=== PATIENT | male | born 1970 | race Caucasian/White ===

== ENCOUNTER 2019-06-26 15:20 | Inpatient (IN) | payer OTHER ==
[2019-06-26 18:26] VITALS: BMI 21.4
--- NOTE | 2019-06-26 20:05 | HP ---
CIWA Score Nausea/Vomitin-No Nausea/No Vomiting Muscle Tremors: 4-Moderate,w/Arms Extend Anxiety: 1-Mildly Anxious Agitation: 0-Normal Activity Paroxysmal Sweats: 3 (Increased facial moisture) Orientation: 2-Disoriented Date<2 days Tacttile Disturbances: 0-None Auditory Disturbances: 0-None Visual Disturbances: 0-None Headache: 0-None Present CIWA-Ar Total Score: 10 - Admission Criteria [facility]AS[facility] Guidelines: Admission for Medically Managed Detox: Requires at least one of the followin. CIWA greater than 12 2. Seizures within the past 24 hours 3. Delirium tremens within the past 24 hours 4. Hallucinations within the past 24 hours 5. Acute intervention needed for co occurring medical disorder 6. Acute intervention needed for co occurring psychiatric disorder 7. Severe withdrawal that cannot be handled at a lower level of care (continued vomiting, continued diarrhea, abnormal vital signs) requiring intravenous medication and/or fluids 8. Patient presents the following: Acute intervention needed for co-occurring med or psych disorder (Patient is HIV +) Admission Criteria Met: Admission criteria met Admission ROS [facility] - [facility] Chief Complaint: I'm in withdrawal. Allergies/Adverse Reactions: Allergies Allergy/AdvReac Type Severity Reaction Status Date / Time Fish Containing Products Allergy Severe Rash Verified 06/26/19 18:16 History of Present Illness: 48 yo presents with alcohol withdrawal w/ co-occurring cocaine and marijuana use disorder requesting detox. Transgender. Prefers to be called "Tamra". States is comfortable being place in a room w/ another male. Alcohol use began at age 14. Currently drinking 12 - 16 oz beers daily x 2 years. Cocaine/Crack use began at age 43. Currently us is $50 - 100/day x 5 years. Heroin use began at age 48. Current use1-2 bags 2-3 x/wk. Last used 06/22/19. Marijuana use began at age 13. Current use is 2 blunts/day. Nicotine use began at age 13. Current use = 1/2 PPD. Longest sobriety 1 1/2 years - 2 years ago. Denies seizures, blackouts, overdoses. Domiciled. Unemployed. PMHx: Hx PPD+ (Rx'd w/ INH/B6 in 2001); Chronic Hepatitis B; Neuropathy of both legs; MHHx: Denies depression. Denies thoughts of harming self or others. Search Terms: Jai Esteban, 1970 Search Date: 06/26/2019 08:16:38 PM The Drug Utilization Report below displays all of the controlled substance prescriptions, if any, that your patient has filled in the last twelve months. The information displayed on this report is compiled from pharmacy submissions to the Department, and accurately reflects the information as submitted by the pharmacies. This report was requested by: Rina Taylor | Reference #: [id number] There are no results for the search terms that you entered. Search Terms: Jai Esteban, 1970 Search Date: 06/26/2019 08:17:16 PM States Searched: [place], [place], [place], [place], [place], [place], [place], [place] The Drug Utilization Report below displays the controlled substance prescriptions, if any, that were dispensed in the indicated state(s). The information displayed on this report is compiled from requests submitted to other states' PMPs, and accurately reflects the information as returned by them. Blank fioer indicate data not provided by other state. This report was requested by: Rina Taylor | Reference #: [id number] Exam Limitations: No Limitations - Ebola screening Have you traveled outside of the country in the last 21 days: No Have you had contact with anyone from an Ebola affected area: No Have you been sick,other than usual withdrawal symptoms: No (Denies recent measles exposure) Do you have a fever: No - Review of Systems Constitutional: Diaphoresis, Unintentional Wgt. Loss EENT: reports: Blurred Vision Respiratory: reports: No Symptoms reported Cardiac: reports: No Symptoms Reported GI: reports: No Symptoms Reported : reports: No Symptoms Reported Musculoskeletal: reports: No Symptoms Reported Integumentary: reports: No Symptoms Reported Neuro: reports: Numbness (Allen from knee to feet x 5 years), Tremors Endocrine: reports: No Symptoms Reported Hematology: reports: Anemia (HIV +) Psychiatric: reports: Judgement Intact, Anxious, other (Unsure of date. Kows month and year) Patient History - PPD History Previous Implant?: Yes Documented Results: Positive w/o proof Implanted On Prior [facility] Admission?: No PPD to be Administered?: No - Smoking Cessation Smoking history: Current every day smoker Have you smoked in the past 12 months: Yes Aproximately how many cigarettes per day: 10 Hx Chewing Tobacco Use: No Initiated information on smoking cessation: Yes 'Breaking Loose' booklet given: 06/26/19 - Substance & Tx. History Hx Alcohol Use: Yes Hx Substance Use: Yes Substance Use Type: Alcohol, Cocaine, Marijuana Hx Substance Use Treatment: Yes (detox, long-term) - Substances abused Crack Substance route: Smoking Frequency: Daily Amount used: $50-300/DAY Age of first use: 44 Date of last use: 06/26/19 Alcohol Substance route: Oral Frequency: Daily Amount used: 12 pack beer 16 ounces, Age of first use: 14 Date of last use: 06/26/19 Heroin Substance route: Inhalation Frequency: 3-6 times per week Amount used: 1-2 bags Age of first use: 48 Date of last use: 06/22/19 Admission Physical Exam [facility] - Vital Signs Vital Signs: Vital Signs - 24 hr 06/26/19 18:21 Temperature 97.9 F Pulse Rate 86 Respiratory 18 Rate Blood Pressure 99/71 - Physical General Appearance: Yes: Mild Distress, Thin, Tremorous (Increased tremors hands w/ arms elevated), Sweating (Increased facial moisture), Anxious HEENTM: Yes: EOMI (Jerking movement of eyes on lateral gaze), Hearing grossly Normal, Normocephalic, Normal Voice, ANNA, Pharynx Normal Respiratory: Yes: Lungs Clear (O2 Sat = 97 %), Normal Breath Sounds, No Respiratory Distress Neck: Yes: No masses,lesions,Nodules, Supple Breast: Yes: Breast Exam Deferred Cardiology: Yes: Regular Rhythm, Regular Rate, S1, S2, Other (Bilateral varicose veins (L) > (R). Pedal pusles +; Cap refill < 3 sec.) Abdominal: Yes: Flat, Soft, Increased Bowel Sounds, Tenderness (RUQ tenderness upon deep palpation. No guarding. 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 NML intact (Jerking movement of eyes on lateral gaze), Alert, Motor Strength 5/5, Normal Response Integumentary: Yes: Normal Color, Warm Lymphatic: Yes: Within Normal Limits - Diagnostic (1) Alcohol dependence with uncomplicated withdrawal Current Visit: Yes Status: Acute (2) Nicotine dependence, uncomplicated Current Visit: Yes Status: Chronic Qualifiers: Nicotine product type: cigarettes Qualified Code(s): F17.210 - Nicotine dependence, cigarettes, uncomplicated (3) Cannabis dependence, uncomplicated Current Visit: Yes Status: Chronic (4) Cocaine dependence, uncomplicated Current Visit: Yes Status: Chronic (5) History of HIV infection Current Visit: Yes Status: Chronic Comment: w/ neuropathy BLE (6) History of positive PPD Current Visit: Yes Status: Chronic (7) History of hepatitis B Current Visit: Yes Status: Chronic (8) Varicose veins of both lower extremities Current Visit: Yes Status: Chronic Qualifiers: Varicose vein complication: asymptomatic Qualified Code(s): I83.93 - Asymptomatic varicose veins of bilateral lower extremities (9) Nystagmus Current Visit: Yes Status: Chronic (10) Mild opioid 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
[2019-06-26] MEDS ORDERED: chlordiazePOXIDE HCL 25 MG CAPSULE PO PRN (20:40)
[2019-06-26] MEDS ORDERED: IBUPROFEN 400 MG TABLET (FP) PO PRN (20:40)
[2019-06-26] MEDS ORDERED: ACETAMINOPHEN 325 MG TABLET (FP) PO PRN ×2 (20:40)
[2019-06-26] MEDS ORDERED: MAGNESIUM HYDROX 2400MG/30ML ORAL SUSPENSION 30 ML CUP PO PRN (20:40)
[2019-06-26] MEDS ORDERED: METHOCARBAMOL 500 MG TABLET PO PRN (20:40)
[2019-06-26] MEDS ORDERED: MAGNESIUM CITRATE 300 ML BOTTLE PO PRN (20:40)
[2019-06-26] MEDS ORDERED: BISMUTH SUBSALICYLATE 524 MG/30 ML UD PO PRN (20:40)
[2019-06-26] MEDS ORDERED: MAG HYDROX/AL HYDROX/SIMETH 30 ML UNIT-DOSE CUP PO PRN (20:40)
[2019-06-26] MEDS ORDERED: MELATONIN 5 MG TABLETS PO PRN (20:40)
[2019-06-26] MEDS ORDERED: NICOTINE POLACRILEX 2 MG GUM BUC PRN (20:40)
[2019-06-26] MEDS ORDERED: MENTHOL/PHENOL 1 EACH UD MM PRN (20:40)
[2019-06-26] MEDS: GABAPENTIN 300 MG CAPSULE (FP) PO SCH (22:21)
[2019-06-26] MEDS: chlordiazePOXIDE HCL 25 MG CAPSULE PO SCH (22:21)
[2019-06-26] MEDS: THIAMINE HCL 100 MG TABLET (FP) PO SCH (22:21)
[2019-06-26] MEDS: SPIRONOLACTONE 25 MG TABLET (FP) PO SCH (22:25)
[2019-06-27] MEDS: chlordiazePOXIDE HCL 25 MG CAPSULE PO SCH ×4 (05:16→22:13)
--- NOTE | 2019-06-27 08:28 | PN ---
[facility] CIWA - CIWA Score Nausea/Vomitin-Mild Nausea/No Vomiting Muscle Tremors: 4-Moderate,w/Arms Extend Anxiety: 3 Agitation: 2 Paroxysmal Sweats: 1-Minimal Palms Moist Orientation: 0-Oriented Tacttile Disturbances: 1-Very Mild Itch/Numbness Auditory Disturbances: 0-None Visual Disturbances: 0-None Headache: 1-Very Mild CIWA-Ar Total Score: 13 S Progress Note (SOAP) Subjective: patient prefers regular diet tremor anxiety restlessness trouble with concentration after lunch feeling better ambulating on hallway limited conversation with staff and peers Objective: 06/27/19 14:28 Vital Signs Temperature 97.8 F 06/27/19 13:33 Pulse Rate 70 06/27/19 13:33 Respiratory Rate 18 06/27/19 13:33 Blood Pressure 102/65 06/27/19 13:33 O2 Sat by Pulse Oximetry (%) Laboratory Last Values WBC 4.5 K/mm3 (4.0-10.0) 06/27/19 07:00 RBC 3.98 M/mm3 (4.00-5.60) L 06/27/19 07:00 Hgb 12.6 GM/dL (11.7-16.9) 06/27/19 07:00 Hct 37.8 % (35.4-49) 06/27/19 07:00 MCV 95.1 fl (80-96) 06/27/19 07:00 MCH 31.8 pg (25.7-33.7) 06/27/19 07:00 MCHC 33.4 g/dl (32.0-35.9) 06/27/19 07:00 RDW 12.8 % (11.9-15.9) 06/27/19 07:00 Plt Count 153 K/MM3 (134-434) 06/27/19 07:00 MPV 10.4 fl (7.5-11.1) 06/27/19 07:00 Sodium 137 mmol/L (136-145) 06/27/19 07:00 Potassium 3.9 mmol/L (3.5-5.1) 06/27/19 07:00 Chloride 105 mmol/L (98-107) 06/27/19 07:00 Carbon Dioxide 26 mmol/L (21-32) 06/27/19 07:00 Anion Gap 5 MMOL/L (8-16) L 06/27/19 07:00 BUN 24.3 mg/dL (7-18) H 06/27/19 07:00 Creatinine 0.8 mg/dL (0.55-1.3) 06/27/19 07:00 Est GFR (CKD-EPI)AfAm 120.72 06/27/19 07:00 Est GFR (CKD-EPI)NonAf 104.16 06/27/19 07:00 Random Glucose 67 mg/dL (74-106) L 06/27/19 07:00 Calcium 7.6 mg/dL (8.5-10.1) L 06/27/19 07:00 Total Bilirubin 1.0 mg/dL (0.2-1) 06/27/19 07:00 AST 93 U/L (15-37) H 06/27/19 07:00 ALT 64 U/L (13-61) H 06/27/19 07:00 Alkaline Phosphatase 123 U/L (45-117) H 06/27/19 07:00 Total Protein 6.7 g/dl (6.4-8.2) 06/27/19 07:00 Albumin 2.6 g/dl (3.4-5.0) L 06/27/19 07:00 RPR Titer Nonreactive (NONREACTIVE) 06/27/19 07:00 lab noted low Ca++ Assessment: 06/27/19 14:29 alcohol withdrawal sx low ca++ Plan: continue alcohol detox Ca++ supplement bid
[2019-06-27] MEDS: NICOTINE 14 MG/24 HOURS TOPICAL PATCH TD SCH (10:05)
[2019-06-27] MEDS: PRENATAL VITAMINS W/ FOLIC ACID TABLET (FP) PO SCH (10:05)
[2019-06-27] MEDS: GABAPENTIN 300 MG CAPSULE (FP) PO SCH ×2 (10:05→22:12)
[2019-06-27] MEDS: SPIRONOLACTONE 25 MG TABLET (FP) PO SCH ×2 (10:06→22:14)
[2019-06-27 10:56] LABS: HEMATOCRIT 37.8 % (35.4-49); HEMOGLOBIN 12.6 GM/dL (11.7-16.9); MCH 31.8 pg (25.7-33.7); MCHC 33.4 g/dl (32.0-35.9); MEAN CELL VOLUME 95.1 fl (80-96); MEAN PLT VOLUME 10.4 fl (7.5-11.1); PLATELET COUNT 153 K/MM3 (134-434); RBC 3.98 M/mm3 (4.00-5.60); RDW 12.8 % (11.9-15.9); WHITE BLOOD COUNT 4.5 K/mm3 (4.0-10.0)
[2019-06-27 11:14] LABS: ALBUMIN 2.6 g/dl (3.4-5.0); BLOOD UREA NITROGEN 24.3 mg/dL (7-18); CALCIUM 7.6 mg/dL (8.5-10.1); CREATININE 0.8 mg/dL (0.55-1.3); POTASSIUM 3.9 mmol/L (3.5-5.1); TOT PROT 6.7 g/dl (6.4-8.2)
--- NOTE | 2019-06-27 15:51 | EKG ---
Test Reason : Blood Pressure : / mmHG Vent. Rate : 061 BPM Atrial Rate : 061 BPM P-R Int : 134 ms QRS Dur : 096 ms QT Int : 438 ms P-R-T Axes : 050 071 076 degrees QTc Int : 440 ms NORMAL SINUS RHYTHM CANNOT RULE OUT ANTERIOR INFARCT , AGE UNDETERMINED ABNORMAL ECG NO PREVIOUS ECGS AVAILABLE Confirmed by MD PRISCILLA, HAY ([id number]) on 06/27/2019 3:51:23 PM Referred By: Confirmed By:HAY WELLS MD
[2019-06-27 16:09] LABS: EPI CELLS 4.5 /HPF (0-5/HPF); HYALINE CASTS 11 /lpf (0-8); URINE APPEARANCE CLEAR; URINE BILIRUBIN NEGATIVE (NEGATIVE); URINE COLOR DK YELLOW; URINE GLUCOSE (UA) NEGATIVE (NEGATIVE); URINE KETONE NEGATIVE (NEGATIVE); URINE LEUK ESTERASE 1+ (NEGATIVE); URINE NITRITE NEGATIVE (NEGATIVE); URINE PROTEIN NEGATIVE (NEGATIVE); URINE RBC 0 /hpf (0-4); URINE WBC 3 /hpf (0-5)
[2019-06-27] MEDS: THIAMINE HCL 100 MG TABLET (FP) PO SCH (22:12)
[2019-06-27] MEDS: CALCIUM 250MG/VIT-D 125 UNITS 1 COMBO TABLET PO SCH (22:12)
[2019-06-28] MEDS: chlordiazePOXIDE HCL 25 MG CAPSULE PO SCH ×4 (06:46→22:18)
[2019-06-28] MEDS ORDERED: COLLOIDAL OATMEAL 1 BAR EACH TP PRN (08:44)
--- NOTE | 2019-06-28 08:45 | PN ---
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 Objective: 06/28/19 10:19 Vital Signs Temperature 96.8 F L 06/28/19 09:19 Pulse Rate 74 06/28/19 09:19 Respiratory Rate 18 06/28/19 09:19 Blood Pressure 99/64 06/28/19 09:19 O2 Sat by Pulse Oximetry (%) Laboratory Last Values WBC 4.5 K/mm3 (4.0-10.0) 06/27/19 07:00 RBC 3.98 M/mm3 (4.00-5.60) L 06/27/19 07:00 Hgb 12.6 GM/dL (11.7-16.9) 06/27/19 07:00 Hct 37.8 % (35.4-49) 06/27/19 07:00 MCV 95.1 fl (80-96) 06/27/19 07:00 MCH 31.8 pg (25.7-33.7) 06/27/19 07:00 MCHC 33.4 g/dl (32.0-35.9) 06/27/19 07:00 RDW 12.8 % (11.9-15.9) 06/27/19 07:00 Plt Count 153 K/MM3 (134-434) 06/27/19 07:00 MPV 10.4 fl (7.5-11.1) 06/27/19 07:00 Sodium 137 mmol/L (136-145) 06/27/19 07:00 Potassium 3.9 mmol/L (3.5-5.1) 06/27/19 07:00 Chloride 105 mmol/L (98-107) 06/27/19 07:00 Carbon Dioxide 26 mmol/L (21-32) 06/27/19 07:00 Anion Gap 5 MMOL/L (8-16) L 06/27/19 07:00 BUN 24.3 mg/dL (7-18) H 06/27/19 07:00 Creatinine 0.8 mg/dL (0.55-1.3) 06/27/19 07:00 Est GFR (CKD-EPI)AfAm 120.72 06/27/19 07:00 Est GFR (CKD-EPI)NonAf 104.16 06/27/19 07:00 Random Glucose 67 mg/dL (74-106) L 06/27/19 07:00 Calcium 7.6 mg/dL (8.5-10.1) L 06/27/19 07:00 Total Bilirubin 1.0 mg/dL (0.2-1) 06/27/19 07:00 AST 93 U/L (15-37) H 06/27/19 07:00 ALT 64 U/L (13-61) H 06/27/19 07:00 Alkaline Phosphatase 123 U/L (45-117) H 06/27/19 07:00 Total Protein 6.7 g/dl (6.4-8.2) 06/27/19 07:00 Albumin 2.6 g/dl (3.4-5.0) L 06/27/19 07:00 Urine Color Dk yellow 06/27/19 13:30 Urine Appearance Clear 06/27/19 13:30 Urine pH 5.0 (5.0-8.0) 06/27/19 13:30 Ur Specific [place] 1.022 (1.010-1.035) 06/27/19 13:30 Urine Protein Negative (NEGATIVE) 06/27/19 13:30 Urine Glucose (UA) Negative (NEGATIVE) 06/27/19 13:30 Urine Ketones Negative (NEGATIVE) 06/27/19 13:30 Urine Blood Negative (NEGATIVE) 06/27/19 13:30 Urine Nitrite Negative (NEGATIVE) 06/27/19 13:30 Urine Bilirubin Negative (NEGATIVE) 06/27/19 13:30 Urine Urobilinogen 2.0 mg/dL (0.2-1.0) 06/27/19 13:30 Ur Leukocyte Esterase 1+ (NEGATIVE) H 06/27/19 13:30 Urine WBC (Auto) 3 /hpf (0-5) 06/27/19 13:30 Urine RBC (Auto) 0 /hpf (0-4) 06/27/19 13:30 Urine Casts (Auto) 11 /lpf (0-8) 06/27/19 13:30 U Epithel Cells (Auto) 4.5 /HPF (0-5/HPF) 06/27/19 13:30 Urine Bacteria (Auto) 218.0 /hpf (NEGATIVE) 06/27/19 13:30 RPR Titer Nonreactive (NONREACTIVE) 06/27/19 07:00 lab noted low ca++ continue calium supplement 06/28/19 10:20 Assessment: 06/28/19 10:21 alcohol withdrawal sx Plan: continue alcohol detox
[2019-06-28] MEDS: CALCIUM 250MG/VIT-D 125 UNITS 1 COMBO TABLET PO SCH ×2 (10:09→22:18)
[2019-06-28] MEDS: SPIRONOLACTONE 25 MG TABLET (FP) PO SCH ×2 (10:09→22:18)
[2019-06-28] MEDS: GABAPENTIN 300 MG CAPSULE (FP) PO SCH ×2 (10:09→22:18)
[2019-06-28] MEDS: PRENATAL VITAMINS W/ FOLIC ACID TABLET (FP) PO SCH (10:09)
[2019-06-28] MEDS: NICOTINE 14 MG/24 HOURS TOPICAL PATCH TD SCH (10:12)
[2019-06-28] MEDS: THIAMINE HCL 100 MG TABLET (FP) PO SCH (22:18)
[2019-06-29] MEDS ORDERED: chlordiazePOXIDE HCL 10 MG CAPSULE PO PRN
[2019-06-29] MEDS ORDERED: LORazepam 0.5 MG TABLET PO SCH (05:00)
[2019-06-29] MEDS: chlordiazePOXIDE HCL 10 MG CAPSULE PO SCH ×2 (06:55→10:16)
[2019-06-29] MEDS: SPIRONOLACTONE 25 MG TABLET (FP) PO SCH ×2 (10:12→22:06)
[2019-06-29] MEDS: CALCIUM 250MG/VIT-D 125 UNITS 1 COMBO TABLET PO SCH ×2 (10:13→22:07)
[2019-06-29] MEDS: PRENATAL VITAMINS W/ FOLIC ACID TABLET (FP) PO SCH (10:13)
[2019-06-29] MEDS: NICOTINE 14 MG/24 HOURS TOPICAL PATCH TD SCH (10:14)
[2019-06-29] MEDS: GABAPENTIN 300 MG CAPSULE (FP) PO SCH ×2 (10:16→22:06)
[2019-06-29] MEDS ORDERED: LORazepam 0.5 MG TABLET PO PRN (10:39)
--- NOTE | 2019-06-29 10:46 | PN ---
[facility] CIWA - CIWA Score Nausea/Vomitin-No Nausea/No Vomiting Muscle Tremors: 1-None Visible, but [place] Anxiety: 2 Agitation: 1-Slight > Activity Paroxysmal Sweats: 1-Minimal Palms Moist Orientation: 0-Oriented Tacttile Disturbances: 0-None Auditory Disturbances: 0-None Visual Disturbances: 0-None Headache: 0-None Present CIWA-Ar Total Score: 5 S Progress Note (SOAP) Subjective: 48 years old male requests ativan as alcohol detox regimen that librium "too strong" for him "feel sleepy" discontinue librium begin ativan detox regimen patient will received first dose of ativan around 1pm Objective: 06/29/19 10:43 Vital Signs Temperature 97.7 F 06/29/19 09:13 Pulse Rate 90 06/29/19 09:13 Respiratory Rate 20 06/29/19 09:13 Blood Pressure 104/71 06/29/19 09:13 O2 Sat by Pulse Oximetry (%) Laboratory Last Values WBC 4.5 K/mm3 (4.0-10.0) 06/27/19 07:00 RBC 3.98 M/mm3 (4.00-5.60) L 06/27/19 07:00 Hgb 12.6 GM/dL (11.7-16.9) 06/27/19 07:00 Hct 37.8 % (35.4-49) 06/27/19 07:00 MCV 95.1 fl (80-96) 06/27/19 07:00 MCH 31.8 pg (25.7-33.7) 06/27/19 07:00 MCHC 33.4 g/dl (32.0-35.9) 06/27/19 07:00 RDW 12.8 % (11.9-15.9) 06/27/19 07:00 Plt Count 153 K/MM3 (134-434) 06/27/19 07:00 MPV 10.4 fl (7.5-11.1) 06/27/19 07:00 Sodium 137 mmol/L (136-145) 06/27/19 07:00 Potassium 3.9 mmol/L (3.5-5.1) 06/27/19 07:00 Chloride 105 mmol/L (98-107) 06/27/19 07:00 Carbon Dioxide 26 mmol/L (21-32) 06/27/19 07:00 Anion Gap 5 MMOL/L (8-16) L 06/27/19 07:00 BUN 24.3 mg/dL (7-18) H 06/27/19 07:00 Creatinine 0.8 mg/dL (0.55-1.3) 06/27/19 07:00 Est GFR (CKD-EPI)AfAm 120.72 06/27/19 07:00 Est GFR (CKD-EPI)NonAf 104.16 06/27/19 07:00 Random Glucose 67 mg/dL (74-106) L 06/27/19 07:00 Calcium 7.6 mg/dL (8.5-10.1) L 06/27/19 07:00 Total Bilirubin 1.0 mg/dL (0.2-1) 06/27/19 07:00 AST 93 U/L (15-37) H 06/27/19 07:00 ALT 64 U/L (13-61) H 06/27/19 07:00 Alkaline Phosphatase 123 U/L (45-117) H 06/27/19 07:00 Total Protein 6.7 g/dl (6.4-8.2) 06/27/19 07:00 Albumin 2.6 g/dl (3.4-5.0) L 06/27/19 07:00 Urine Color Dk yellow 06/27/19 13:30 Urine Appearance Clear 06/27/19 13:30 Urine pH 5.0 (5.0-8.0) 06/27/19 13:30 Ur Specific [place] 1.022 (1.010-1.035) 06/27/19 13:30 Urine Protein Negative (NEGATIVE) 06/27/19 13:30 Urine Glucose (UA) Negative (NEGATIVE) 06/27/19 13:30 Urine Ketones Negative (NEGATIVE) 06/27/19 13:30 Urine Blood Negative (NEGATIVE) 06/27/19 13:30 Urine Nitrite Negative (NEGATIVE) 06/27/19 13:30 Urine Bilirubin Negative (NEGATIVE) 06/27/19 13:30 Urine Urobilinogen 2.0 mg/dL (0.2-1.0) 06/27/19 13:30 Ur Leukocyte Esterase 1+ (NEGATIVE) H 06/27/19 13:30 Urine WBC (Auto) 3 /hpf (0-5) 06/27/19 13:30 Urine RBC (Auto) 0 /hpf (0-4) 06/27/19 13:30 Urine Casts (Auto) 11 /lpf (0-8) 06/27/19 13:30 U Epithel Cells (Auto) 4.5 /HPF (0-5/HPF) 06/27/19 13:30 Urine Bacteria (Auto) 218.0 /hpf (NEGATIVE) 06/27/19 13:30 RPR Titer Nonreactive (NONREACTIVE) 06/27/19 07:00 lab noted Assessment: 06/29/19 10:58 alcohol withdrawal sx Plan: continue alcohol detox with ativan regimen
[2019-06-29] MEDS: LORazepam 0.5 MG TABLET PO SCH ×2 (12:25→22:06)
[2019-06-29] MEDS: SULFAMETHOXAZOLE/TRIMETHOPRIM 800MG/160MG D.S. TABLET PO SCH ×2 (12:25→22:07)
[2019-06-29] MEDS: THIAMINE HCL 100 MG TABLET (FP) PO SCH (22:07)
[2019-06-30] MEDS ORDERED: LORazepam 0.5 MG TABLET PO SCH (05:00)
[2019-06-30] MEDS ORDERED: chlordiazePOXIDE HCL 10 MG CAPSULE PO SCH (05:00)
[2019-06-30 09:13] VITALS: BP 105/72; PULSE 90; TEMP 96.9
[2019-06-30] MEDS: NICOTINE 14 MG/24 HOURS TOPICAL PATCH TD SCH (10:02)
[2019-06-30] MEDS: PRENATAL VITAMINS W/ FOLIC ACID TABLET (FP) PO SCH (10:03)
[2019-06-30] MEDS: SPIRONOLACTONE 25 MG TABLET (FP) PO SCH (10:03)
[2019-06-30] MEDS: CALCIUM 250MG/VIT-D 125 UNITS 1 COMBO TABLET PO SCH (10:03)
[2019-06-30] MEDS: SULFAMETHOXAZOLE/TRIMETHOPRIM 800MG/160MG D.S. TABLET PO SCH (10:03)
[2019-06-30] MEDS: GABAPENTIN 300 MG CAPSULE (FP) PO SCH (10:03)
--- NOTE | 2019-06-30 12:53 | PN ---
S CIWA - CIWA Score Nausea/Vomitin-No Nausea/No Vomiting Muscle Tremors: None Anxiety: 1-Mildly Anxious Agitation: 2 Paroxysmal Sweats: No Perspiration Orientation: 0-Oriented Tacttile Disturbances: 0-None Auditory Disturbances: 0-None Visual Disturbances: 0-None Headache: 0-None Present CIWA-Ar Total Score: 3 BHS Progress Note (SOAP) Subjective: Patient reports that current Withdrawal / Detox symptoms are minimal in degree and that he feels well overall. Objective: PATIENT A & O X 3, OBSERVED AMBULATING ON UNIT UNASSISTED. IN NO ACUTE DISTRESS. 06/30/19 12:52 Vital Signs Temperature 96.9 F L 06/30/19 09:12 Pulse Rate 90 06/30/19 09:12 Respiratory Rate 18 06/30/19 09:12 Blood Pressure 105/72 06/30/19 09:12 O2 Sat by Pulse Oximetry (%) Laboratory Tests 06/27/19 06/27/19 06/27/19 07:00 07:00 07:00 WBC 4.5 RBC 3.98 L Hgb 12.6 Hct 37.8 MCV 95.1 MCH 31.8 MCHC 33.4 RDW 12.8 Plt Count 153 MPV 10.4 Sodium 137 Potassium 3.9 Chloride 105 Carbon Dioxide 26 Anion Gap 5 L BUN 24.3 H Creatinine 0.8 Est GFR (CKD-EPI)AfAm 120.72 Est GFR (CKD-EPI)NonAf 104.16 Random Glucose 67 L Calcium 7.6 L Total Bilirubin 1.0 AST 93 H ALT 64 H Alkaline Phosphatase 123 H Total Protein 6.7 Albumin 2.6 L Urine Color Urine Appearance Urine pH Ur Specific [place] Urine Protein Urine Glucose (UA) Urine Ketones Urine Blood Urine Nitrite Urine Bilirubin Urine Urobilinogen Ur Leukocyte Esterase Urine WBC (Auto) Urine RBC (Auto) Urine Casts (Auto) U Epithel Cells (Auto) Urine Bacteria (Auto) RPR Titer Nonreactive 06/27/19 13:30 WBC RBC Hgb Hct MCV MCH MCHC RDW Plt Count MPV Sodium Potassium Chloride Carbon Dioxide Anion Gap BUN Creatinine Est GFR (CKD-EPI)AfAm Est GFR (CKD-EPI)NonAf Random Glucose Calcium Total Bilirubin AST ALT Alkaline Phosphatase Total Protein Albumin Urine Color Dk yellow Urine Appearance Clear Urine pH 5.0 Ur Specific [place] 1.022 Urine Protein Negative Urine Glucose (UA) Negative Urine Ketones Negative Urine Blood Negative Urine Nitrite Negative Urine Bilirubin Negative Urine Urobilinogen 2.0 Ur Leukocyte Esterase 1+ H Urine WBC (Auto) 3 Urine RBC (Auto) 0 Urine Casts (Auto) 11 U Epithel Cells (Auto) 4.5 Urine Bacteria (Auto) 218.0 RPR Titer LABS NOTED. Assessment: 06/30/19 12:52 COMPLETION OF DETOX REGIMEN. Plan: SINCE PATIENT REPORTS THAT CURRENT WITHDRAWAL / DETOX SYMPTOMS ARE MINIMAL IN DEGREE AND THAT HE FEELS WELL OVERALL, AT PATIENTS REQUEST, HE WAS GRANTED AN EARLY DISCHARGE FROM DETOX UNIT TODAY SO THAT HE MAY PROCEED ON TO AFTERCARE PLAN - [facility] ([place], [place]).
--- NOTE | 2019-06-30 13:00 | DS ---
[facility] Detox Discharge Summary Admission Date: 06/26/19 Discharge Date: 06/30/19 - History Present History: Alcohol Dependence, Cannabis Dependence, Cocaine Dependence Additional Comments: PATIENT REPORTS THAT CURRENT WITHDRAWAL / DETOX SYMPTOMS ARE MINIMAL IN DEGREE AND THAT HE FEELS WELL OVERALL AT TIME OF DISCHARGE FROM DETOX UNIT. PATIENT GOING TO [facility] ([place]) FOR AFTERCARE. PATIENT WAS DISCHARGED FROM DETOX UNIT TO BE TAKEN OVER TO REHAB UNIT IN STABLE MEDICAL CONDITION. Pertinent Past History: Nicotine Dependence, H.I.V., History Of Positive PPD (Treated), Neuropathy In Bilateral Legs, Chronic Hepatitis B, Nicotine Dependence, Nystagmus, History Of Varicose Veins of Bilateral Extremities. - Physical Exam Results Vital Signs: Vital Signs Temperature 96.9 F L 06/30/19 09:12 Pulse Rate 90 06/30/19 09:12 Respiratory Rate 18 06/30/19 09:12 Blood Pressure 105/72 06/30/19 09:12 O2 Sat by Pulse Oximetry (%) Pertinent Admission Physical Exam Findings: WITHDRAWAL SYMPTOMS. Laboratory Tests 06/27/19 06/27/19 06/27/19 07:00 07:00 07:00 WBC 4.5 RBC 3.98 L Hgb 12.6 Hct 37.8 MCV 95.1 MCH 31.8 MCHC 33.4 RDW 12.8 Plt Count 153 MPV 10.4 Sodium 137 Potassium 3.9 Chloride 105 Carbon Dioxide 26 Anion Gap 5 L BUN 24.3 H Creatinine 0.8 Est GFR (CKD-EPI)AfAm 120.72 Est GFR (CKD-EPI)NonAf 104.16 Random Glucose 67 L Calcium 7.6 L Total Bilirubin 1.0 AST 93 H ALT 64 H Alkaline Phosphatase 123 H Total Protein 6.7 Albumin 2.6 L Urine Color Urine Appearance Urine pH Ur Specific [place] Urine Protein Urine Glucose (UA) Urine Ketones Urine Blood Urine Nitrite Urine Bilirubin Urine Urobilinogen Ur Leukocyte Esterase Urine WBC (Auto) Urine RBC (Auto) Urine Casts (Auto) U Epithel Cells (Auto) Urine Bacteria (Auto) RPR Titer Nonreactive 06/27/19 13:30 WBC RBC Hgb Hct MCV MCH MCHC RDW Plt Count MPV Sodium Potassium Chloride Carbon Dioxide Anion Gap BUN Creatinine Est GFR (CKD-EPI)AfAm Est GFR (CKD-EPI)NonAf Random Glucose Calcium Total Bilirubin AST ALT Alkaline Phosphatase Total Protein Albumin Urine Color Dk yellow Urine Appearance Clear Urine pH 5.0 Ur Specific [place] 1.022 Urine Protein Negative Urine Glucose (UA) Negative Urine Ketones Negative Urine Blood Negative Urine Nitrite Negative Urine Bilirubin Negative Urine Urobilinogen 2.0 Ur Leukocyte Esterase 1+ H Urine WBC (Auto) 3 Urine RBC (Auto) 0 Urine Casts (Auto) 11 U Epithel Cells (Auto) 4.5 Urine Bacteria (Auto) 218.0 RPR Titer LABS NOTED. - Treatment Hospital Course: Detox Protocol Followed, Detoxed Safely, Responded well, Discharged Condition Good, Rehab Referral Accepted Patient has Accepted a Rehab Referral to: [facility] ([place], [place]). 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 Status: Acute (3) Cannabis dependence, uncomplicated Status: Chronic (4) Cocaine dependence, uncomplicated Status: Chronic (5) History of HIV infection Status: Chronic (6) History of hepatitis B Status: Chronic (7) History of positive PPD Status: Chronic (8) Nicotine dependence, uncomplicated Status: Chronic Qualifiers: Nicotine product type: cigarettes Qualified Code(s): F17.210 - Nicotine dependence, cigarettes, uncomplicated (9) Nystagmus Status: Chronic (10) Varicose veins of both lower extremities Status: Chronic Qualifiers: Varicose vein complication: asymptomatic Qualified Code(s): I83.93 - Asymptomatic varicose veins of bilateral lower extremities - AMA Did Patient Leave Against Medical Advice: No
[2019-07-01] MEDS ORDERED: LORazepam 0.5 MG TABLET PO ONE (05:00)
[2019-07-01] MEDS ORDERED: chlordiazePOXIDE HCL 10 MG CAPSULE PO ONE (05:00)
== END 2019-06-30 12:42 | disposition other institution (70) | DRG 773 ==
LOC: YASAS 15:20 → Y3N 21:15
PROVIDERS: ADMIT Surgery; ATTEND Surgery
PROC: HZ2ZZZZ Detoxification Services for Substance Abuse Treatment (ICD-10-PCS; principal; 2019-06-26)
DX: F10.230 Alcohol dependence with withdrawal, uncomplicated (principal); F14.20 Cocaine dependence, uncomplicated; F12.20 Cannabis dependence, uncomplicated; F11.11 Opioid abuse, in remission; F17.210 Nicotine dependence, cigarettes, uncomplicated; H55.00 Unspecified nystagmus; Z21 Asymptomatic human immunodeficiency virus [HIV] infection status; R76.11 Nonspecific reaction to tuberculin skin test without active tuberculosis; I83.93 Asymptomatic varicose veins of bilateral lower extremities; E83.51 Hypocalcemia; Z91.013 Allergy to seafood
CPT/HCPCS: 36415; 71046-TC-FY; 80053; 81003; 85027; 86593; 93005; 93010

== ENCOUNTER 2019-06-30 13:03 | Inpatient (IN) | payer OTHER | END 2019-07-01 12:37 | disposition left against medical advice (07) | LOC: YASAS 13:03 → Y3E 13:10 ==

== ENCOUNTER 2022-11-30 14:16 | Inpatient (IN) | payer OTHER ==
[2022-11-30 16:11] VITALS: RESP 18; BMI 18.5
[2022-11-30] MEDS ORDERED: MAG HYDROX/AL HYDROX/SIMETH 30 ML UNIT-DOSE CUP PO PRN (18:43)
[2022-11-30] MEDS ORDERED: LOPERAMIDE HCL 2 MG CAPSULE PO PRN (18:43)
[2022-11-30] MEDS ORDERED: NICOTINE POLACRILEX 2 MG GUM BUC PRN (18:43)
[2022-11-30] MEDS ORDERED: BISMUTH SUBSALICYLATE 524 MG/30 ML PO PRN (18:43)
[2022-11-30] MEDS ORDERED: BENZOCAINE/MENTHOL (CHLORASEPTIC ) LOZENGE MM PRN (18:43)
[2022-11-30] MEDS ORDERED: IBUPROFEN 400 MG TABLET (FP) PO PRN (18:43)
[2022-11-30] MEDS ORDERED: IBUPROFEN 600 MG TABLET (FP) PO PRN (18:43)
[2022-11-30] MEDS ORDERED: ONDANSETRON *ODT* 4 MG TABLET SL PRN (18:43)
[2022-11-30] MEDS ORDERED: guaiFENesin 200 MG/10 ML 10 ML UNIT-DOSE CUPS PO PRN (18:43)
[2022-11-30] MEDS ORDERED: MAGNESIUM HYDROX 2400MG/30ML ORAL SUSPENSION 30 ML CUP PO PRN (18:43)
[2022-11-30] MEDS ORDERED: P-EPHED 60MG/TRIPROLIDI 2.5MG TABLET PO PRN (18:43)
[2022-11-30] MEDS ORDERED: METHOCARBAMOL 500 MG TABLET PO PRN (18:43)
[2022-11-30] MEDS ORDERED: DICYCLOMINE HCL 10 MG CAPSULE PO PRN (18:43)
[2022-11-30] MEDS ORDERED: POLYETHYLENE GLYCOL (HEALTHYLAX) 3350 17 GM PACKET PO PRN (18:43)
[2022-11-30] MEDS ORDERED: hydrOXYzine PAMOATE 25 MG CAPSULE (FP) PO PRN (18:43)
[2022-11-30] MEDS ORDERED: ACETAMINOPHEN 325 MG TABLET (FP) PO PRN ×2 (18:43)
[2022-11-30] MEDS ORDERED: THIAMINE HCL 100 MG TABLET (FP) PO SCH (22:00)
[2022-11-30] MEDS ORDERED: MELATONIN 5 MG TABLETS PO SCH (22:00)
[2022-12-01] MEDS ORDERED: PRENATAL VITAMINS W/ FOLIC ACID TABLET (FP) PO SCH (10:00)
[2022-12-01 11:03] LABS: HEMOGLOBIN 9.7 GM/dL (11.7-16.9); MCH 28.4 pg (25.7-33.7); MCHC 32.2 g/dl (32.0-35.9); MEAN CELL VOLUME 88.2 fl (80-96); MEAN PLT VOLUME 8.4 fl (7.5-11.1); PLATELET COUNT 311 10^3/uL (134-434); RDW 22.1 % (11.9-15.9); WHITE BLOOD COUNT 3.8 K/mm3 (4.0-10.0)
[2022-12-01 11:16] LABS: ALBUMIN 2.5 g/dl (3.4-5.0); CALCIUM 7.7 mg/dL (8.5-10.1)
[2022-12-01 11:17] LABS: BLOOD UREA NITROGEN 23.4 mg/dL (7-18)
[2022-12-01 11:19] LABS: CREATININE 0.8 mg/dL (0.55-1.3)
[2022-12-01 11:22] LABS: BILIRUBIN,TOTAL 0.4 mg/dL (0.2-1); TOT PROT 7.4 g/dl (6.4-8.2)
[2022-12-01 13:07] VITALS: BP 100/53; PULSE 67; TEMP 98
== END 2022-12-01 13:33 | disposition other institution (70) | DRG 774 ==
LOC: YASAS 14:16 → Y3N 19:13
PROVIDERS: ADMIT Allergy & Immunology; ATTEND Surgery
PROC: HZ2ZZZZ Detoxification Services for Substance Abuse Treatment (ICD-10-PCS; principal; 2022-11-30)
DX: F10.230 Alcohol dependence with withdrawal, uncomplicated (principal); F14.20 Cocaine dependence, uncomplicated; F15.10 Other stimulant abuse, uncomplicated; F17.210 Nicotine dependence, cigarettes, uncomplicated; Z21 Asymptomatic human immunodeficiency virus [HIV] infection status; G62.9 Polyneuropathy, unspecified; I83.93 Asymptomatic varicose veins of bilateral lower extremities; H55.00 Unspecified nystagmus; Z86.19 Personal history of other infectious and parasitic diseases; Z86.11 Personal history of tuberculosis; Z91.013 Allergy to seafood
CPT/HCPCS: 36415; 80053; 85027; 86780; C9803-CS; U0003; U0005

== ENCOUNTER 2024-02-16 21:58 | Inpatient (IN) | payer OTHER ==
[2024-02-16 22:32] VITALS: BMI 17.8
[2024-02-16] MEDS ORDERED: ACETAMINOPHEN 325 MG TABLET (FP) PO PRN (23:17)
[2024-02-16] MEDS ORDERED: IBUPROFEN 600 MG TABLET (FP) PO PRN (23:17)
[2024-02-16] MEDS ORDERED: MAGNESIUM HYDROX 2400MG/30ML ORAL SUSPENSION 30 ML CUP PO PRN (23:17)
[2024-02-16] MEDS ORDERED: IBUPROFEN 400 MG TABLET (FP) PO PRN (23:17)
[2024-02-16] MEDS ORDERED: BENZONATATE 200 MG CAPSULE PO PRN (23:17)
[2024-02-16] MEDS ORDERED: BENZOCAINE/MENTHOL (CHLORASEPTIC ) LOZENGE MM PRN (23:17)
[2024-02-16] MEDS ORDERED: guaiFENesin 600 MG TABLET.ER (FP) PO PRN (23:17)
[2024-02-16] MEDS ORDERED: POLYETHYLENE GLYCOL (HEALTHYLAX) 3350 17 GM PACKET PO PRN (23:17)
[2024-02-17] MEDS: MELATONIN 5 MG TABLETS PO SCH (00:30)
[2024-02-17] MEDS: PRENATAL VITAMINS W/ FOLIC ACID TABLET (FP) PO SCH (09:01)
[2024-02-17] MEDS: SERTRALINE HCL 50 MG TABLET (FP) PO SCH (10:16)
[2024-02-17 11:53] LABS: HEMATOCRIT 34.3 % (35.4-49); HEMOGLOBIN 11.2 GM/dL (11.7-16.9); MCH 29.6 pg (25.7-33.7); MCHC 32.6 g/dl (32.0-35.9); MEAN CELL VOLUME 90.8 fl (80-96); MEAN PLT VOLUME 8.7 fl (7.5-11.1); PLATELET COUNT 300 10^3/uL (134-434); RBC 3.78 M/mm3 (4.00-5.60); RDW 16.4 % (11.9-15.9); WHITE BLOOD COUNT 7.6 K/mm3 (4.0-10.0)
[2024-02-17 12:07] LABS: POTASSIUM 3.6 mmol/L (3.5-5.1)
[2024-02-17 12:08] LABS: ALBUMIN 2.8 g/dl (3.4-5.0); BLOOD UREA NITROGEN 19.3 mg/dL (7-18)
[2024-02-17 12:11] LABS: CREATININE 0.9 mg/dL (0.55-1.3)
[2024-02-17 12:13] LABS: BILIRUBIN,TOTAL 0.2 mg/dL (0.2-1)
[2024-02-17] MEDS: LOPERAMIDE HCL 2 MG CAPSULE PO PRN (12:44)
[2024-02-17] MEDS: traZODone HCL 50 MG TABLET (FP) PO SCH (22:31)
[2024-02-17] MEDS: GABAPENTIN 400 MG CAPSULE PO SCH (22:31)
[2024-02-17] MEDS: THIAMINE HCL 100 MG TABLET (FP) PO SCH (22:31)
[2024-02-18] MEDS: CLOTRIMAZOLE 1% CREAM TP SCH (06:00)
[2024-02-18] MEDS: DAPSONE 25 MG TABLET PO SCH (07:00)
[2024-02-18] MEDS: CYANOCOBALAMIN 1,000 MCG TABLET (FP) PO SCH (07:00)
[2024-02-18] MEDS: CHOLESTYRAMINE/SUCROSE 4 GM PACKET PO SCH (07:00)
[2024-02-18] MEDS: ALBUTEROL SO4 HFA INHALER IH SCH (07:00)
[2024-02-18] MEDS: LEVOTHYROXINE NA 25 MCG TABLET (FP) PO SCH (07:00)
[2024-02-18] MEDS: BICTEGRAV/EMTRICIT/TENOFOV (BIKTARVY) 50-200-25 MG TABLET PO SCH (07:00)
[2024-02-18] MEDS: ATOVAQUONE 750 MG/5 ML (UNIT-DOSE PACKAGING) PO SCH (07:00)
[2024-02-18] MEDS: LIPASE PO SCH (10:21)
[2024-02-18] MEDS: [UNRECOGNIZED DRUG - OTHER] PO SCH (10:21)
[2024-02-18] MEDS: PROTEASE PO SCH (10:21)
[2024-02-18] MEDS: AMYLASE PO SCH (10:21)
[2024-02-18] MEDS: LIPASE/PROTEASE/AMYLASE 24,000 UNIT CAPSULE PO SCH (11:44)
[2024-02-18 17:05] LABS: EPI CELLS >36 /uL (0-25.1); HYALINE CASTS 12 /uL (0-3.1); URINE APPEARANCE CLOUDY; URINE BACTERIA 71 /uL (0-1359); URINE BILIRUBIN NEGATIVE (NEGATIVE); URINE COLOR YELLOW; URINE GLUCOSE (UA) NEGATIVE (NEGATIVE); URINE KETONE NEGATIVE (NEGATIVE); URINE LEUK ESTERASE 2+ (NEGATIVE); URINE NITRITE NEGATIVE (NEGATIVE); URINE PROTEIN 1+ (NEGATIVE); URINE UROBILINOGEN 0.2 mg/dL (0.2-1.0); URINE WBC 594 /uL (0-25.8)
[2024-02-18 18:29] LABS: URINE RBC 69.5 /uL (0-23.9)
[2024-02-18 18:30] LABS: URINE CRYSTALS NONE SEEN /hpf; YEAST NONE SEEN (NEGATIVE)
[2024-02-19] MEDS: hydrOXYzine PAMOATE 25 MG CAPSULE (FP) PO PRN (13:35)
[2024-02-19] MEDS: DIPHENOXYLATE 2.5/ATROPINE.025 1 COMBO TABLET PO ONE (14:55)
[2024-02-19] MEDS: NITROFURANTOIN MACROCRYSTAL 50 MG CAPSULE (FP) PO SCH (14:59)
[2024-02-19] MEDS ORDERED: HYOSCYAMINE SULFATE 0.125 MG TABLET PO PRN (20:01)
[2024-02-19] MEDS: DICYCLOMINE HCL 10 MG CAPSULE PO ONE (20:08)
[2024-02-20] MEDS: NICOTINE 14 MG/24 HOURS TOPICAL PATCH TD SCH (10:32)
[2024-02-20] MEDS: MAG HYDROX/AL HYDROX/SIMETH 30 ML UNIT-DOSE CUP PO PRN (12:32)
[2024-02-21] MEDS: DICYCLOMINE HCL 10 MG CAPSULE PO ONE (09:56)
[2024-02-21] MEDS: ONDANSETRON *ODT* 4 MG TABLET SL PRN (11:45)
[2024-02-21] MEDS: HYOSCYAMINE SULFATE 0.125 MG *ODT PO PRN (11:47)
[2024-02-21 11:56] LABS: POTASSIUM 2.9 mmol/L (3.5-5.1)
[2024-02-21] MEDS: POTASSIUM CHLORIDE ORAL LIQUID 20 MEQ/15 ML PO SCH (12:41)
[2024-02-21] MEDS ORDERED: DIPHENOXYLATE 2.5/ATROPINE.025 1 COMBO TABLET PO PRN (13:06)
[2024-02-21] MEDS: DIPHENOXYLATE 2.5/ATROPINE.025 1 COMBO TABLET PO ONE (16:35)
[2024-02-22] MEDS: NITROFURANTOIN MONOHYD/M-CRYST 100 MG CAPSULE PO SCH (10:13)
[2024-02-22] MEDS ORDERED: ALBUTEROL SO4 HFA INHALER IH PRN (11:10)
[2024-02-23] MEDS: NICOTINE POLACRILEX 2 MG GUM BUC PRN (06:54)
[2024-02-23] MEDS: CHOLESTYRAMINE/NUTRASWEET 4 GM PACKET PO SCH (14:47)
[2024-02-23] MEDS: BACLOFEN 10 MG TABLET (FP) PO SCH (21:44)
[2024-02-24 17:12] LABS: BASO % 0.4 % (0-2.0); EOS % 9.3 % (0-4.5); HEMATOCRIT 36.7 % (35.4-49); HEMOGLOBIN 12.1 GM/dL (11.7-16.9); LYMPH % 15.4 % (8-40); MEAN CELL VOLUME 90.7 fl (80-96); MEAN PLT VOLUME 8.6 fl (7.5-11.1); MONO % 6.4 % (3.8-10.2); NEUT % 68.5 % (42.8-82.8); PLATELET COUNT 343 10^3/uL (134-434); RBC 4.05 M/mm3 (4.00-5.60); RDW 16.2 % (11.9-15.9)
[2024-02-24 17:17] LABS: POTASSIUM 3.4 mmol/L (3.5-5.1)
[2024-02-24 17:18] LABS: CALCIUM 8.8 mg/dL (8.5-10.1)
[2024-02-24 17:19] LABS: BLOOD UREA NITROGEN 18.4 mg/dL (7-18)
[2024-02-24 17:20] LABS: MAGNESIUM 1.8 mg/dL (1.8-2.4)
[2024-02-24 17:24] LABS: BILIRUBIN,TOTAL 0.2 mg/dL (0.2-1); INR 1.16 (0.83-1.09); PROTHROMBIN TIME (PATIENT) 13.4 SEC (9.7-13.0); TOT PROT 8.4 g/dl (6.4-8.2)
[2024-02-24] MEDS: traZODone HCL 100 MG TABLET (FP) PO SCH (21:45)
[2024-02-25] MEDS: POTASSIUM CHLORIDE ORAL LIQUID 20 MEQ/15 ML PO SCH (22:02)
[2024-02-25] MEDS: BACLOFEN 10 MG TABLET (FP) PO SCH (22:03)
[2024-02-28] MEDS: P-EPHED 60MG/TRIPROLIDI 2.5MG TABLET PO PRN (16:47)
[2024-02-29 07:16] VITALS: BP 106/60; PULSE 79; RESP 16; TEMP 97.7
[2024-02-29] MEDS: DIPHENOXYLATE 2.5/ATROPINE.025 1 COMBO TABLET PO PRN (11:00)
[2024-02-29 12:32] LABS: POTASSIUM 3.2 mmol/L (3.5-5.1)
[2024-02-29 12:34] LABS: CALCIUM 8.4 mg/dL (8.5-10.1)
[2024-02-29 12:35] LABS: ALBUMIN 2.8 g/dl (3.4-5.0); BLOOD UREA NITROGEN 18.3 mg/dL (7-18); MAGNESIUM 1.9 mg/dL (1.8-2.4)
[2024-02-29 12:38] LABS: CREATININE 0.9 mg/dL (0.55-1.3)
[2024-02-29 12:39] LABS: BILIRUBIN,TOTAL 0.2 mg/dL (0.2-1); TOT PROT 7.6 g/dl (6.4-8.2)
[2024-02-29] MEDS: POTASSIUM CHLORIDE ORAL LIQUID 20 MEQ/15 ML PO ONE (14:01)
== END 2024-02-29 14:15 | disposition home or self-care (01) | DRG 772 ==
LOC: YASAS 21:58 → Y3NR 23:25 → Y5N 02-18 12:29
PROVIDERS: ADMIT Allergy & Immunology; ATTEND Psychiatry & Neurology Pain Medicine
PROC: HZ42ZZZ Group Counseling for Substance Abuse Treatment, Cognitive-Behavioral (ICD-10-PCS; principal; 2024-02-16)
DX: F11.20 Opioid dependence, uncomplicated (principal); F10.20 Alcohol dependence, uncomplicated; F14.20 Cocaine dependence, uncomplicated; F17.210 Nicotine dependence, cigarettes, uncomplicated; F19.24 Other psychoactive substance dependence with psychoactive substance-induced mood disorder; B20 Human immunodeficiency virus [HIV] disease; E87.5 Hyperkalemia; F64.0 Transsexualism; R19.7 Diarrhea, unspecified; Z86.11 Personal history of tuberculosis; Z86.19 Personal history of other infectious and parasitic diseases; Z88.2 Allergy status to sulfonamides
CPT/HCPCS: 36415; 71045-TC-FY; 80053; 80305; 81003; 82140; 82652; 83735; 84132; 85025; 85027; 85610; 86780; 87045; 87046; 87086; J0475; Q0162

== ENCOUNTER 2024-09-29 15:21 | Inpatient (IN) | payer OTHER ==
[2024-09-29 16:32] VITALS: BMI 18.8
[2024-09-29] MEDS ORDERED: BENZONATATE 200 MG CAPSULE PO PRN (19:23)
[2024-09-29] MEDS ORDERED: METHOCARBAMOL 500 MG TABLET PO PRN (19:23)
[2024-09-29] MEDS ORDERED: NICOTINE POLACRILEX 2 MG LOZENGE BC PRN (19:23)
[2024-09-29] MEDS ORDERED: BISMUTH SUBSALICYLATE 524 MG/30 ML PO PRN (19:23)
[2024-09-29] MEDS ORDERED: IBUPROFEN 600 MG TABLET (FP) PO PRN (19:23)
[2024-09-29] MEDS ORDERED: NICOTINE POLACRILEX 2 MG GUM BUC PRN (19:23)
[2024-09-29] MEDS ORDERED: BENZOCAINE/MENTHOL (CHLORASEPTIC ) LOZENGE MM PRN (19:23)
[2024-09-29] MEDS ORDERED: POLYETHYLENE GLYCOL (HEALTHYLAX) 3350 17 GM PACKET PO PRN (19:23)
[2024-09-29] MEDS ORDERED: DICYCLOMINE HCL 10 MG CAPSULE PO PRN (19:23)
[2024-09-29] MEDS ORDERED: MAG HYDROX/AL HYDROX/SIMETH 30 ML UNIT-DOSE CUP PO PRN (19:23)
[2024-09-29] MEDS ORDERED: P-EPHED 60MG/TRIPROLIDI 2.5MG TABLET PO PRN (19:23)
[2024-09-29] MEDS ORDERED: MAGNESIUM HYDROX 2400MG/30ML ORAL SUSPENSION 30 ML CUP PO PRN (19:23)
[2024-09-29] MEDS ORDERED: ACETAMINOPHEN 325 MG TABLET (FP) PO PRN (19:23)
[2024-09-29] MEDS ORDERED: hydrOXYzine PAMOATE 25 MG CAPSULE (FP) PO PRN (19:23)
[2024-09-29] MEDS ORDERED: guaiFENesin 600 MG TABLET.ER (FP) PO PRN (19:23)
[2024-09-29] MEDS ORDERED: IBUPROFEN 400 MG TABLET (FP) PO PRN (19:23)
[2024-09-29] MEDS: MELATONIN 5 MG TABLETS PO SCH (23:09)
[2024-09-29] MEDS: LOPERAMIDE HCL 2 MG CAPSULE PO PRN (23:09)
[2024-09-29] MEDS: THIAMINE 100 MG TABLET PO SCH (23:09)
[2024-09-30] MEDS ORDERED: PRENATAL VITAMINS W/ FOLIC ACID TABLET (FP) PO ONE (09:27)
[2024-09-30] MEDS ORDERED: ONDANSETRON *ODT* 4 MG TABLET ONE (09:32)
[2024-09-30] MEDS: ONDANSETRON *ODT* 4 MG TABLET SL PRN (09:33)
[2024-09-30] MEDS: PRENATAL VITAMINS W/ FOLIC ACID TABLET (FP) PO SCH (09:33)
[2024-09-30] MEDS ORDERED: diazePAM 5 MG TABLET PO PRN (09:55)
[2024-09-30] MEDS ORDERED: diazePAM 5 MG TABLET ONE (10:33)
[2024-09-30] MEDS: diazePAM 5 MG TABLET PO SCH (10:35)
[2024-09-30] MEDS: traZODone HCL 50 MG TABLET (FP) PO SCH (22:34)
[2024-10-01] MEDS: diazePAM 5 MG TABLET PO SCH (05:38)
[2024-10-01] MEDS ORDERED: ALBUTEROL SO4 HFA INHALER IH PRN (08:37)
[2024-10-01] MEDS: BICTEGRAV/EMTRICIT/TENOFOV (BIKTARVY) 50-200-25 MG TABLET PO SCH (09:18)
[2024-10-01] MEDS: ATOVAQUONE 750 MG/5 ML (UNIT-DOSE PACKAGING) PO SCH (10:52)
[2024-10-01] MEDS: CHOLESTYRAMINE/SUCROSE 4 GM PACKET PO SCH (11:56)
[2024-10-01] MEDS: LIPASE/PROTEASE/AMYLASE 36,000 UNIT CAPSULE PO SCH (11:56)
[2024-10-02] MEDS: diazePAM 5 MG TABLET PO SCH ×2 (06:20→18:00)
[2024-10-02] MEDS: LEVOTHYROXINE NA 25 MCG TABLET (FP) PO SCH (06:53)
[2024-10-02] MEDS: LIPASE/PROTEASE/AMYLASE 36,000 UNIT CAPSULE PO SCH (08:11)
[2024-10-03] MEDS: diazePAM 5 MG TABLET PO ONE (05:55)
[2024-10-03] MEDS ORDERED: diazePAM 5 MG TABLET PO ONE (06:00)
[2024-10-03] MEDS: NALOXONE (NYS OPIOID OVERDOSE PROGRAM) 4 MG/0.1 ML SPRAY NS SCH (10:47)
[2024-10-03] MEDS: DIPHENOXYLATE 2.5/ATROPINE.025 1 COMBO TABLET PO ONE (10:54)
[2024-10-03] MEDS ORDERED: DIPHENOXYLATE 2.5/ATROPINE.025 1 COMBO TABLET PO PRN (11:00)
[2024-10-03 20:59] VITALS: RESP 16
[2024-10-04 07:08] VITALS: BP 109/65; PULSE 65; TEMP 97.5
[2024-10-04] MEDS: NALOXONE (NYS OPIOID OVERDOSE PROGRAM) 4 MG/0.1 ML SPRAY NS PRN (08:40)
== END 2024-10-04 08:57 | disposition other institution (70) | DRG 774 ==
LOC: YASAS 15:21 → Y6N 19:48 → UNDOADMIN 19:48 → Y6N 09-30 12:13
PROVIDERS: ADMIT Allergy & Immunology; ATTEND Allergy & Immunology
PROC: HZ2ZZZZ Detoxification Services for Substance Abuse Treatment (ICD-10-PCS; principal; 2024-09-30)
DX: F10.230 Alcohol dependence with withdrawal, uncomplicated (principal); F14.20 Cocaine dependence, uncomplicated; F12.20 Cannabis dependence, uncomplicated; F17.210 Nicotine dependence, cigarettes, uncomplicated; B20 Human immunodeficiency virus [HIV] disease; G99.0 Autonomic neuropathy in diseases classified elsewhere; E78.2 Mixed hyperlipidemia; E03.9 Hypothyroidism, unspecified; J45.909 Unspecified asthma, uncomplicated; R19.7 Diarrhea, unspecified; Z86.11 Personal history of tuberculosis; Z86.19 Personal history of other infectious and parasitic diseases; Z88.2 Allergy status to sulfonamides
CPT/HCPCS: 80305; 80307; Q0162